=== PATIENT | male | born 1980 | race Hispanic/Latino ===

== ENCOUNTER 2022-09-09 10:01 | Inpatient (IN) | payer BC ==
[~2022-09-09] VITALS: Ht 177.8 cm; Wt 131.3 kg
--- NOTE | 2022-09-09 10:32 | NUR ---
PT CAME IN VIA POV WITH C/O RIGHT FOOT WOUND/INFECTION, WAS SSENT IN BY . PT AND VITALS STABLE
[2022-09-09 10:33] LABS: BASO% 0.1 % (0-3); EOS% 0.3 % (0-8); HEMATOCRIT 43.2 % (39.0-50.0); HEMOGLOBIN 13.8 g/dl (14.0-18.0); IMMATURE GRANULOCYTES 0.2 % (0.0-5.0); LYMPH% 11.2 % (15-41); MEAN CELL VOLUME 89.8 fL CALC (80.0-100.0); MEAN CORPUSCULAR HGB 28.7 pG CALC (26.0-32.0); MEAN CORPUSCULAR HGB CONC 31.9 g/dL CAL (32.0-36.0); MONO% 1.9 % (2-13); NEUT# 10.09 thou/uL (1.82-7.42); NEUT% 86.3 % (42-76); RED BLOOD COUNT 4.81 mill/uL (4.70-6.10); RED CELL DISTRI WIDTH 12.2 % (11.5-15.5)
--- NOTE | 2022-09-09 11:15 | NUR ---
Reassessment of patient completed. No distress noted.
[2022-09-09 11:30] LABS: ALBUMIN 4.2 g/dL (3.2-5.0); ALKALINE PHOSPHATASE 169 u/l (38-126); ANION GAP 14 (6-22 (CALC)); BUN 14 mg/dL (9-20); BUN/CREATININE RATIO 19 (12-20 (CALC)); CARBON DIOXIDE 23 mmol/l (22-30); CHLORIDE 102 mmol/l (95-108); CREATININE 0.7 mg/dL (0.7-1.3); GFR FOR AFR.AMER. > 60 ML/MIN (>=60 (CALC)); GFR OTHER RACES > 60 ML/MIN (>=60 (CALC)); POTASSIUM 4.4 mmol/l (3.5-5.1); SGOT/AST 28 u/l (17-59); SODIUM 134 mmol/l (137-146); TOTAL PROTEIN 8.6 g/dL (6.3-8.2)
--- NOTE | 2022-09-09 12:30 | NUR ---
Reassessment of patient completed. No distress noted.
--- NOTE | 2022-09-09 13:18 | NUR ---
Reassessment of patient completed. No distress noted.
--- NOTE | 2022-09-09 14:01 | NUR ---
S: ELENITA CALLAWAY is a 41 M who presents with sepsis due to cellulitis of right foot. He has a history of obesity. All medications in patient's chart were reviewed. O: VS: BP 144/103, P 127, RR 19, T 99.8 W 127.7 kg, HT 177.8 cm, Scr=0.7,CrCl= 188.3 ml/min A: Blood culture pending. P: Patient is on Zosyn 3.375g IV q6 hours. Vancomycin ordered for pharmacy to dose. Start Vancomycin 1500mg IV Q8 hours. Vancomycin trough is drawn before the 4th dose on 09/10/22 at 0730. Vancomycin goal trough is 15-20 mcg/ml. Pharmacy will follow and or advise on antibiotics use as needed.
--- NOTE | 2022-09-09 14:12 | NUR ---
PT ARRIVED TO ROOM 267 VIA WHEELCHAIR ACCOMPAINED BY ER STAFF AND FAMILY. PT A&OX4. NO APPARENT DISTRESS NOTED. PT DENIES ANY PAIN OR DISCOMFORT. PT AMBULATORY WITH STEADY GAIT FROM CHAIR TO BED. PT ORIENTED TO ROOM AND CALL LIGHT SYSTEM. DISCUSSED POC AND SAFETY PRECAUTIONS. PT VERBALIZED UNDERSTANDING. CALL LIGHT WITHIN REACH. WILL CONTINUE TO MONITOR.
--- NOTE | 2022-09-09 14:15 | NUR ---
Reassessment of patient completed. No distress noted.
--- NOTE | 2022-09-09 14:30 | NUR ---
ESCORTED PATIENT UPSTAIRS TO ROOM 267 VIA WHEELCHAIR AND GAVE BEDSIDE REPORT TO ANABELL. VERBALIZED UNDERSTANDING. PATIENT AMBULATED TO HOSPITAL BED AND DECLINED FURTHER NEEDS.
[2022-09-09 15:37] VITALS: BP 107/66
--- NOTE | 2022-09-09 16:56 | NUR ---
CONSENT OBTAINED FOR SURGICAL PROCEDURE TOMORROW 09/10/22.
[2022-09-09 19:17] VITALS: BP 101/64
--- NOTE | 2022-09-09 20:00 | NUR ---
PATIENT SITTING UP IN BED. ALERT AND ABLE TO MAKE NEEDS KNOWN. ASSESSMENT COMPLETE. DENIES ANY PAIN TO RIGHT FOOT. SITE APPEARS SWOLLEN, WITH YELLOW THIN DRAINAGE. PERES, DRY AREA. SLIGHT REDNESS. COOL TO TOUCH. NO DISTRESS NOTED. BED REMAINS IN LOW POSITION. CALL CANNON IN REACH.
--- NOTE | 2022-09-09 22:44 | NUR ---
CALLED [facility] STACKER PROVIDER INFORMING PATIENT FEELING NAUSEOUS. NEW ORDER TO BE PUT IN BY PROVIDER.
--- NOTE | 2022-09-09 23:04 | NUR ---
PATIENT RECEIVED PRN ZOFRAN DUE TO INCREASED NAUSEA. PATIENT TOLERATED WELL. 2 WARM BLANKETS PROVIDED. DENIES NEEDING ANYTHING ELSE AT THIS TIME.
[2022-09-10] VITALS (14 sets, daily range): BP systolic 102–121; BP diastolic 58–79
--- NOTE | 2022-09-10 04:00 | NUR ---
PATIENT RESTING IN BED ON HIS RIGHT SIDE. NO DISTRESS NOTED. NO COMPLAINTS OF PAIN VOICED. BED REMAINS IN LOW POSITION. REMAINS NPO. CALL CANNON IN REACH.
[2022-09-10 05:49] LABS: BASO% 0.1 % (0-3); EOS% 0.8 % (0-8); IMMATURE GRANULOCYTES 0.7 % (0.0-5.0); LYMPH% 6.7 % (15-41); MEAN CELL VOLUME 91.1 fL CALC (80.0-100.0); MEAN CORPUSCULAR HGB 28.9 pG CALC (26.0-32.0); MEAN CORPUSCULAR HGB CONC 31.8 g/dL CAL (32.0-36.0); MONO% 4.9 % (2-13); NEUT# 9.5 thou/uL (1.82-7.42); NEUT% 86.8 % (42-76); RED BLOOD COUNT 3.8 mill/uL (4.70-6.10); RED CELL DISTRI WIDTH 12.5 % (11.5-15.5)
[2022-09-10 06:02] LABS: HEMATOCRIT 34.6 % (39.0-50.0)
[2022-09-10 06:27] LABS: ALKALINE PHOSPHATASE 147 u/l (38-126); ANION GAP 11 (6-22 (CALC)); BILIRUBIN, TOTAL 0.6 mg/dL (0.2-1.3); BUN 8 mg/dL (9-20); BUN/CREATININE RATIO 12 (12-20 (CALC)); CARBON DIOXIDE 22 mmol/l (22-30); CHLORIDE 105 mmol/l (95-108); CREATININE 0.7 mg/dL (0.7-1.3); GFR FOR AFR.AMER. > 60 ML/MIN (>=60 (CALC)); GFR OTHER RACES > 60 ML/MIN (>=60 (CALC)); POTASSIUM 4.1 mmol/l (3.5-5.1); SGOT/AST 31 u/l (17-59); SODIUM 134 mmol/l (137-146)
[2022-09-10 06:31] LABS: TOTAL PROTEIN 6.7 g/dL (6.3-8.2)
--- NOTE | 2022-09-10 08:00 | NUR ---
PATIENT RESTING INFORMED OF PLAN FOR THE DAY. PATIENT IS NPO DUE TO PROCEDURE AROUND NOON. WILL CONTINUE TO MONITOR.
--- NOTE | 2022-09-10 14:52 | NUR ---
PATIENT WAS PICKED UP BY OR AROUND 1215 FAMILY PRESENT DURING THIS TIME.
--- NOTE | 2022-09-10 18:45 | NUR ---
PATIENT TOLERATING INTAKE. PATIENT HAVING MILD PAIN TYLENOL GIVEN. DRESSING ON LEFT FOOT STILL INTACT AND ELEVATED. WILL CONTINUE TO MONITOR.
--- NOTE | 2022-09-10 19:30 | NUR ---
PATIENT RESTING IN BED SITTING UP. ASSESSMENT COMPLETE. MERCEDEZ BANDAGE WITH DRESSING IN PLACE TO RIGHT FOOT. EXPOSED TOES ARE ACYANOTIC, WARM TO TOUCH. PATIENT ABLE TO MOVE TOES. NO DISTRESS NOTED. DENIES NEEDING ANYTHING AT THIS TIME. BED REMAINS IN LOW POSITION. CALL CANNON IN REACH.
[2022-09-11] VITALS (7 sets, daily range): BP systolic 103–137; BP diastolic 56–87
--- NOTE | 2022-09-11 00:10 | NUR ---
PATIENT REMAINS RESTING IN BED. NO COMPLAINTS VOICED AT THIS TIME. DRESSING TO RIGHT FOOT REMAINS INTACT. BED REMAINS IN LOW POSITION. CALL CANNON IN REACH.
--- NOTE | 2022-09-11 04:30 | NUR ---
PATIENT RESTING IN BED. NO COMPLAINTS VOICED AT THIS TIME. NO DISTRESS NOTED. DRESSING AND MERCEDEZ WRAP REMAIN TO RIGHT FOOT. BED REMAINS IN LOW POSITION. CALL CANNON IN REACH.
--- NOTE | 2022-09-11 08:29 | NUR ---
S: ELENITA CALLAWAY is a 41 M who presents with sepsis due to cellulitis of right foot. He has a history of obesity. All medications in patient's chart were reviewed. O: VS: W 127.7 kg, HT 177.8 cm, Scr=0.7,CrCl= 188.3 ml/min A: Blood culture pending. P: Patient is on Zosyn 3.375g IV q6 hours. Vancomycin ordered for pharmacy to dose. Start Vancomycin 1500mg IV Q8 hours. Vancomycin trough is drawn before the 4th dose on 09/12/22 at 0730. TROUGH IS 15 ON 09/11/22 Vancomycin goal trough is 15-20 mcg/ml. Pharmacy will follow and or advise on antibiotics use as needed.
--- NOTE | 2022-09-11 12:52 | NUR ---
PATIENT RESTING WITH FAMILY AT BEDSIDE. PATIENT ABLE TO USE CHAIR WALKER TO BATHROOM WITHOUT ANY ISSUES. PATIENT UNDERSTAND TO ASK FOR HELP WHEN NEEDED. PATIENT STATED UNDERSTANDING. WILL CONTINUE TO MONITOR.
--- NOTE | 2022-09-11 19:30 | NUR ---
PT RESTING IN BED, NO SIGNS OF DISTRESS NOTED, RESP EVEN AND UNLABORED. PT ALERT AND ORIENTED X3, DISCUSSED POC AND PROVIDED PT WITH DIABETIC TEACHING. DRESSING TO RLE, ELEVATED ON PILLOWS. ASSESSMENT COMPLETED, CALL LIGHT IN REACH, CONTINUE TO MONITOR.
--- NOTE | 2022-09-11 21:53 | NUR ---
PT RESTING IN BED, C/O PAIN, PT MEDICATED PER SEP. CALL LIGHT IN REACH, CONTINUE TO MONITOR.
--- NOTE | 2022-09-12 | NUR ---
PT RESTING IN BED ON HIS PHONE, NO SIGNS OF DISTRESS NOTED, RESP EVEN AND UNLABORED. PT MEDICATED PER MAR, DENIES ANY NEEDS OR COMPLAINTS AT THIS TIME. CALL LIGHT IN REACH,CONTINUE TO MONITOR.
--- NOTE | 2022-09-12 04:00 | NUR ---
PT RESTING IN BED WITH EYES CLOSED, NO SIGNS OF DISTRESS NOTED, RESP EVEN AND UNLABORED. CALL LIGHT IN REACH,CONTINUE TO MONITOR.
[2022-09-12 04:32] VITALS: BP 108/64
[2022-09-12 05:41] LABS: HEMATOCRIT 35.4 % (39.0-50.0); HEMOGLOBIN 11.3 g/dl (14.0-18.0); MEAN CELL VOLUME 90.5 fL CALC (80.0-100.0); MEAN CORPUSCULAR HGB 28.9 pG CALC (26.0-32.0); MEAN CORPUSCULAR HGB CONC 31.9 g/dL CAL (32.0-36.0); RED BLOOD COUNT 3.91 mill/uL (4.70-6.10); RED CELL DISTRI WIDTH 12.4 % (11.5-15.5)
[2022-09-12 06:12] LABS: ALKALINE PHOSPHATASE 168 u/l (38-126); ANION GAP 10 (6-22 (CALC)); BUN 7 mg/dL (9-20); BUN/CREATININE RATIO 10 (12-20 (CALC)); CARBON DIOXIDE 22 mmol/l (22-30); CHLORIDE 107 mmol/l (95-108); CREATININE 0.7 mg/dL (0.7-1.3); GFR FOR AFR.AMER. > 60 ML/MIN (>=60 (CALC)); GFR OTHER RACES > 60 ML/MIN (>=60 (CALC)); MAGNESIUM 2.3 mg/dL (1.6-2.3); POTASSIUM 3.8 mmol/l (3.5-5.1); SGOT/AST 34 u/l (17-59); SODIUM 136 mmol/l (137-146); TOTAL PROTEIN 6.8 g/dL (6.3-8.2)
[2022-09-12 06:15] VITALS: BP 112/79
--- NOTE | 2022-09-12 07:00 | NUR ---
REPORT FROM IAN BIRD. ASSUMED PT CARE.
--- NOTE | 2022-09-12 07:35 | NUR ---
PT RESTING IN BED. WAKES EASILY. NO APPARENT DISTRESS NOTED. PT DENIES ANY PAIN OR DISCOMFORT. DISCUSSED POC AND SAFETY PRECAUTIONS. PT VERBALIZED UNDERSTANDING. NO CURRENT WANTS OR NEEDS. CALL LIGHT WITHIN REACH. WILL CONTINUE TO MONITOR.
--- NOTE | 2022-09-12 09:10 | NUR ---
dr. lambert at bedside.
[2022-09-12 11:00] VITALS: BP 126/72
--- NOTE | 2022-09-12 13:09 | NUR ---
PT RESTING IN BED. NO APPARENT DISTRESS NOTED. PT DENIES ANY PAIN OR DISCOMFORT. DRESSING TO RIGHT FOOT, CDI. CALL LIGHT WITHIN REACH. WILL CONTINUE TO MONITOR.
[2022-09-12 14:05] VITALS: BP 120/81
--- NOTE | 2022-09-12 16:08 | NUR ---
PT RESTING IN BED. NO APPARENT DISTRESS NOTED. PT WAKES EASILY. DENIES ANY PAIN OR DISCOMFORT. RIGHT FOOT ELEVATED ON PILLOWS. CALL LIGHT WITHIN REACH. WILL CONTINUE TO MONITOR.
[2022-09-12 19:19] VITALS: BP 135/88
--- NOTE | 2022-09-12 19:58 | NUR ---
PT RESTING IN RECLINER AT BEDSIDE WITH LEGS ELEVATED, NO SIGNS OF DISTRESS NOTED, RESP EVEN AND UNLABORED. PT ALERT AND ORIENTED X3, DRESSING TO RLE CDI, DISCUSSED POC, VERBALIZED UNDERSTANDING. PT C/O PAIN 01/01 PT MEDICATED PER SEP, ASSESSMENT COMPLETED, CALL LIGHT IN REACH,CONTINUE TO MONITOR.
[2022-09-13] VITALS: BP 119/80
--- NOTE | 2022-09-13 00:15 | NUR ---
PT RESTING IN BED, NO SIGNS OF DISTRESS NOTED, RESP EVEN AND UNLABORED. PT STATES PAIN VERY MINIMAL, MEDICATED PER MAR, CALL LIGHT IN REACH,CONTINUE TO MONITOR.
[2022-09-13 04:12] VITALS: BP 130/85
[2022-09-13 05:20] LABS: HEMATOCRIT 38.4 % (39.0-50.0); HEMOGLOBIN 12.4 g/dl (14.0-18.0); MEAN CELL VOLUME 90.4 fL CALC (80.0-100.0); MEAN CORPUSCULAR HGB 29.2 pG CALC (26.0-32.0); MEAN CORPUSCULAR HGB CONC 32.3 g/dL CAL (32.0-36.0); RED BLOOD COUNT 4.25 mill/uL (4.70-6.10); RED CELL DISTRI WIDTH 12.3 % (11.5-15.5)
[2022-09-13 05:36] LABS: ALBUMIN 3.5 g/dL (3.2-5.0); ALKALINE PHOSPHATASE 172 u/l (38-126); ANION GAP 12 (6-22 (CALC)); BUN 6 mg/dL (9-20); BUN/CREATININE RATIO 8 (12-20 (CALC)); CARBON DIOXIDE 26 mmol/l (22-30); CHLORIDE 104 mmol/l (95-108); CREATININE 0.7 mg/dL (0.7-1.3); GFR FOR AFR.AMER. > 60 ML/MIN (>=60 (CALC)); GFR OTHER RACES > 60 ML/MIN (>=60 (CALC)); MAGNESIUM 2.3 mg/dL (1.6-2.3); SGOT/AST 36 u/l (17-59); SODIUM 138 mmol/l (137-146)
[2022-09-13 05:41] LABS: BILIRUBIN, TOTAL 0.1 mg/dL (0.2-1.3)
[2022-09-13 06:27] VITALS: BP 124/77
--- NOTE | 2022-09-13 07:00 | NUR ---
RECEIVE REPORT FROM IAN BIRD.
[2022-09-13 07:12] VITALS: BP 124/77
--- NOTE | 2022-09-13 08:00 | NUR ---
Alert and oriented patient x3. No distress is observed at the time of this note. complete head-to-toe assessment. Patient is educated and oriented on medications and nursing plan for today. Patient refers to understanding. Safety and fall precautions in place. Call light within reach.
--- NOTE | 2022-09-13 10:30 | NUR ---
Piccline ready. Patient tolerated well
--- NOTE | 2022-09-13 10:34 | NUR ---
BOOKED AN INFECTIOUS DISEASE CONSULT WITH DR JOHNSON VIA [facility] AT 1034 HRS.
--- NOTE | 2022-09-13 12:00 | NUR ---
Patient resting in bed. Stable at this time. Hourly rounds for fall prevention and satisfaction of patient needs are made.
[2022-09-13 13:50] VITALS: BP 136/72
--- NOTE | 2022-09-13 16:32 | NUR ---
PATIENT STABLE AT THE TIME OF THIS NOTE. REST SITTING IN THE RECLINING CHAIR. SAFETY AND FALL PRECAUTIONS IN PLACE. CALL LIGHT WITHIN IN REACH.
[2022-09-13 18:50] VITALS: BP 124/78
--- NOTE | 2022-09-13 19:26 | NUR ---
RECIEVED REPORT FROM DAYSHIFT NURSE. PT NOTED LAYING SUPINE IN BED, RT FOOT ELEVATED AND DRESSED, WRAPPED WITH MERCEDEZ BANDAGE. PT IS A/OX3. COMPLAINS OF PAIN IN RT FOOT 4 OUT OF 10. WILL FOLLOW UP WITH PAIN MEDICATION PER EMAR. PT RE EDUCATED ON INSULIN COVERAGE FOR [place]. INDICATED UNDERSTANDING. CALL LIGHT WITHIN REACH AND SAFETY PRECAUTIONS IN PLACE.
--- NOTE | 2022-09-14 00:11 | NUR ---
PT RECEIVED TYLENOL PER EMAR [facility]PR MILD PAIN. PT LAYING IN BED ON LEFT SIDE. CALL LIGHT WITHIN REACH AND SAFETY PRECAUTIONS IN PLACE.
[2022-09-14 00:19] VITALS: BP 120/68
[2022-09-14 04:15] VITALS: BP 137/85
--- NOTE | 2022-09-14 04:30 | NUR ---
LABS DRAWN FROM PICC LINE. PROPER PROTOCOL FOLLOWED. PT DENIED ANY PAIN AT THIS TIME. CALL LIGHT WITHIN REACH AND SAFETY PRECAUTIONS IN PLACE.
[2022-09-14 04:59] LABS: BASO% 0.3 % (0-3); HEMATOCRIT 35.7 % (39.0-50.0); HEMOGLOBIN 11.5 g/dl (14.0-18.0); IMMATURE GRANULOCYTES 0.4 % (0.0-5.0); LYMPH% 28.2 % (15-41); MEAN CELL VOLUME 89.9 fL CALC (80.0-100.0); MEAN CORPUSCULAR HGB CONC 32.2 g/dL CAL (32.0-36.0); MONO% 6.7 % (2-13); NEUT# 4.13 thou/uL (1.82-7.42); NEUT% 61.4 % (42-76); RED BLOOD COUNT 3.97 mill/uL (4.70-6.10); RED CELL DISTRI WIDTH 12.3 % (11.5-15.5)
[2022-09-14 05:26] LABS: ALBUMIN 3.5 g/dL (3.2-5.0); ALKALINE PHOSPHATASE 160 u/l (38-126); ANION GAP 8 (6-22 (CALC)); BUN 10 mg/dL (9-20); BUN/CREATININE RATIO 14 (12-20 (CALC)); CARBON DIOXIDE 28 mmol/l (22-30); CHLORIDE 106 mmol/l (95-108); CREATININE 0.7 mg/dL (0.7-1.3); GFR FOR AFR.AMER. > 60 ML/MIN (>=60 (CALC)); GFR OTHER RACES > 60 ML/MIN (>=60 (CALC)); POTASSIUM 3.7 mmol/l (3.5-5.1); SGOT/AST 37 u/l (17-59); SODIUM 138 mmol/l (137-146); TOTAL PROTEIN 7.9 g/dL (6.3-8.2)
[2022-09-14 06:57] VITALS: BP 142/92
[2022-09-14 07:04] VITALS: BP 142/92
--- NOTE | 2022-09-14 07:23 | NUR ---
RECEIVE REPORT FROM LOREN BIRD.
--- NOTE | 2022-09-14 08:00 | NUR ---
Alert and oriented patient x3. No distress is observed at the time of this note. complete head-to-toe assessment. Dr. Gates visits, changes the patient's dressing and advises him on the discharge plan and follow up. Patient is educated and oriented on medications and nursing plan for today. Patient refers to understanding. Safety and fall precautions in place. Call light within reach.
[2022-09-14] MEDS ORDERED: ROCEPHIN 1 GM1 GM IV (09:36)
[2022-09-14] MEDS ORDERED: HYDROCO/APAP1 TA9 PO (09:36)
[2022-09-14] MEDS ORDERED: LEVEMIR100 UNIT SC (09:36)
[2022-09-14 10:34] VITALS: BP 113/71
[2022-09-14 15:04] VITALS: BP 124/80
--- NOTE | 2022-09-14 16:00 | NUR ---
REPORT RECIEVED FROM RAKESH ARNDT RN PT RESTING IN RECLINER. STATES NO NEEDS AT THIS TIME. FALL/SAFTEY PRECAUTIO [facility] PLACE. CALL LIGHT WITHIN REACH
--- NOTE | 2022-09-14 18:41 | NUR ---
Discharge instructions given. Patient verbalizes understanding of same. Discharged in stable condition via Wheelchair to Home with staff. All belongings sent with pt.
--- NOTE | 2022-09-14 20:07 | NUR ---
RECIEVED CALL FROM PATIENT THAT STATES THAT HE IS AT [facility] AND STATES THAT THE LEVEMIR IS NOT COVERED ON HIS INSURANCE BUT LANTUS IS. SPOKE WITH SHANNON THE PHARMASIST THAT STATES THE SAME. CALLED DR. LAGUNAS AND NEW ORDERS FOR LANTUS OBTAINED. NEW ORDER OBTAINED AND CALLED TO [employer] [phone] AND SPOKE WITH [facility] PHARMASIST WITH NEW ORDER. THEN CALLED THE PATIENT ELENITA NILTON WITH UPDATE. VERBALIZES UNDERSTANDING OF THE STATED.
== END 2022-09-14 18:41 | disposition home or self-care (01) | DRG 854 ==
LOC: ED 10:01 → ED-I 10:58 → ED 12:09 → MS2 12:10
PROVIDERS: Family Medicine; Nurse Practitioner Family; ADMIT Internal Medicine; ATTEND Internal Medicine
PROC: 0Y6P0Z0 Detachment at Right 1st Toe, Complete, Open Approach (ICD-10-PCS; principal; 2022-09-10)
PROC: 0HXMXZZ Transfer Right Foot Skin, External Approach (ICD-10-PCS; 2022-09-10)
PROC: 0QBN0ZX Excision of Right Metatarsal, Open Approach, Diagnostic (ICD-10-PCS; 2022-09-10)
PROC: 0QBN0Z2 Excision of Right Metatarsal, Sesamoid Bone(s) 1st Toe, Open Approach (ICD-10-PCS; 2022-09-10)
PROC: 02HV33Z Insertion of Infusion Device into Superior Vena Cava, Percutaneous Approach (ICD-10-PCS; 2022-09-13)
PROC: B518ZZA Fluoroscopy of Superior Vena Cava, Guidance (ICD-10-PCS; 2022-09-13)
DX: A40.1 Sepsis due to streptococcus, group B (principal); L02.611 Cutaneous abscess of right foot; M86.171 Other acute osteomyelitis, right ankle and foot; L03.115 Cellulitis of right lower limb; L97.419 Non-pressure chronic ulcer of right heel and midfoot with unspecified severity; E11.69 Type 2 diabetes mellitus with other specified complication; E11.621 Type 2 diabetes mellitus with foot ulcer; E11.42 Type 2 diabetes mellitus with diabetic polyneuropathy; E11.65 Type 2 diabetes mellitus with hyperglycemia; E66.9 Obesity, unspecified; Z20.822 Contact with and (suspected) exposure to COVID-19
CPT/HCPCS: J0131; J1650; J3370

== ENCOUNTER 2022-12-10 09:04 | Day surgery (SDC) | payer BC ==
[~2022-12-10] VITALS: Ht 175.3 cm; Wt 131.5 kg
[~2022-12-10 09:04] MED LIST: CINNAMON500 M1 PO; HYDROCO/APAP1 TA9 PO; LEVEMIR100 UNIT SC; OZEMPIC2 MG IN; ROCEPHIN 1 GM1 GM IV; [UNRECOGNIZED DRUG - OTHER] PO
[2022-12-10 13:12] VITALS: BP 124/83
== END 2022-12-10 13:26 | disposition home or self-care (01) | DRG 728 ==
LOC: ORM 09:04
PROVIDERS: ATTEND Urology
PROC: 0VTTXZZ Resection of Prepuce, External Approach (ICD-10-PCS; principal; 2022-12-10)
DX: N47.1 Phimosis (principal); E11.65 Type 2 diabetes mellitus with hyperglycemia; N52.9 Male erectile dysfunction, unspecified; E66.01 Morbid (severe) obesity due to excess calories; Z79.4 Long term (current) use of insulin; Z79.85 Long-term (current) use of injectable non-insulin antidiabetic drugs
CPT/HCPCS: J1100